=== PATIENT | male | born 1990 ===

== ENCOUNTER 2020-05-14 03:31 | Emergency (ER) | payer SELFPAY ==
[2020-05-14] MEDS ORDERED: IBUPROFEN 400 MG TAB ONE (04:06)
[2020-05-14] MEDS ORDERED: ACETAMINOPHEN 500 MG TAB ONE (04:06)
--- NOTE | 2020-05-14 05:03 | ER ---
Nurse's Notes [facility] Name: Luis Live Age: 30 yrs Sex: Male : 1990 Arrival Date: 05/14/2020 Time: 03:31 Bed 24 Private MD: Diagnosis: Laceration without foreign body of scalp;Contusion of unspecified part of head;Concussion without loss of consciousness Presentation: 05/14 03:40 Chief complaint: EMS states: PD reported pt stitches came out, pt reports he feels ea "off" states " I did drink tonight". Coronavirus screen: At this time, the client does not indicate any symptoms associated with coronavirus-19. Ebola Screen: No symptoms or risks identified at this time. Complicating Factors: There are no complicating factors for this patient. Initial Sepsis Screen: Does the patient meet any 2 criteria? No. Patient's initial sepsis screen is negative. Does the patient have a suspected source of infection? No. Patient's initial sepsis screen is negative. Risk Assessment: Do you want to hurt yourself or someone else? Patient reports no desire to harm self or others. Onset of symptoms was May 14, 2020. 03:40 Method Of Arrival: EMS: [facility] ea 03:40 Acuity: CARLOS 3 ea Triage Assessment: 03:49 General: Appears in no apparent distress. Behavior is appropriate for age, Smells of ea alcohol. Pain: Denies pain. Respiratory: Airway is patent Respiratory effort is even, unlabored, Respiratory pattern is regular, symmetrical. Derm: Skin is pink, warm \\T\\ dry. Injury Description: Laceration sustained to right side of head was sustained reports laceration is 1 week old. Historical: - Allergies: 03:48 No Known Allergies; ea - Home Meds: 03:48 None [Active]; ea - PMHx: 03:48 None; ea - PSHx: 03:48 None; ea - Immunization history:: Adult Immunizations up to date. - Social history:: Smoking status: Patient denies any tobacco usage or history of. Screenin:48 Abuse screen: Denies threats or abuse. Nutritional screening: No deficits noted. ea Tuberculosis screening: No symptoms or risk factors identified. Fall Risk Assessment: 03:54 Reassessment: Patient appears in no apparent distress at this time. Patient is alert, sg oriented x 3, equal unlabored respirations, skin warm/dry/pink. pt refused pain medications as ordered at this time, pt states " Im good, I just need the sutures put back in and Im good." pain education provided to patient, stated understanding, ERP notified pt refused medications ordered at this time. Vital Signs: 03:40 BP 147 / 104; Pulse 95; Resp 17; Temp 98.3; Pulse Ox 100% ; Weight 104.33 kg; Height 5 ea ft. 10 in. (177.80 cm); 03:40 Body Mass Index 33.00 (104.33 kg, 177.80 cm) ea Zhou Coma Score: 06:23 Eye Response: spontaneous(4). Verbal Response: oriented(5). Motor Response: obeys tw4 commands(6). Total: 15. 06:23 Eye Response: spontaneous(4). Verbal Response: oriented(5). Motor Response: obeys tw4 commands(6). Total: 15. ED Course: 03:31 Patient arrived in ED. sg 03:36 Andreas Ocampo, RN is Primary Nurse. sg 03:[address] MD is Attending Physician. tw4 03:47 Triage completed. sg 03:47 Arm band placed on. sg 03:48 Patient has correct armband on for positive identification. Bed in low position. Call ea light in reach. Side rails up X2. 04:24 CT Head Brain wo Cont In Process Unspecified. EDMS 05:14 No provider procedures requiring assistance completed. Patient did not have IV access ea during this emergency room visit. Administered Medications: 03:52 Not Given (Patient Refused): Motrin 800 mg PO once sg 03:52 Not Given (Patient Refused): Tylenol 1000 mg PO once sg Outcome: 05:02 Discharge ordered by . tw4 05:14 Patient left the ED. rr5 Signatures: Dispatcher [employer] EDMS Andreas Ocampo RN RN Marjorie Jay RN RN ea Wadley, Terrence, MD MD [facility] Erik Morales RN RN rr5 Corrections: (The following items were deleted from the chart) 03:48 03:47 Acuity: CARLOS 4 sg
--- NOTE | 2020-05-14 05:03 | EDPHYS ---
Physician Documentation [facility] Name: Luis Live Age: 30 yrs Sex: Male : 1990 Arrival Date: 05/14/2020 Time: 03:31 Bed 24 Private MD: ED Physician Eugene Lane HPI: 05/14 06:23 This 30 yrs old Male presents to ER via EMS with complaints of Laceration. tw4 06:23 The patient or guardian reports injury. The complaints affect the right temporal area. tw4 Context of injury: The problem [facility]. Onset: The symptoms/episode began/occurred just prior to arrival, today. Associated signs and symptoms: Loss of consciousness: This patient experience a loss of consciousness. The patient has not experienced similar symptoms in the past. Historical: - Allergies: 03:48 No Known Allergies; ea - Home Meds: 03:48 None [Active]; ea - PMHx: 03:48 None; ea - PSHx: 03:48 None; ea - Immunization history:: Adult Immunizations up to date. - Social history:: Smoking status: Patient denies any tobacco usage or history of. ROS: 06:23 Constitutional: Negative for fever, chills, and weight loss, Cardiovascular: Negative tw4 for chest pain, palpitations, and edema, Respiratory: Negative for shortness of breath, cough, wheezing, and pleuritic chest pain, Abdomen/GI: Negative for abdominal pain, nausea, vomiting, diarrhea, and constipation, Back: Negative for injury and pain, MS/Extremity: Negative for injury and deformity. Exam: 06:23 Constitutional: This is a well developed, well nourished patient who is awake, alert, tw4 and in no acute distress. 06:23 Neck: Trachea midline, no thyromegaly or masses palpated, and no cervical lymphadenopathy. Supple, full range of motion without nuchal rigidity, or vertebral point tenderness. No Meningismus. Chest/axilla: Normal chest wall appearance and motion. Nontender with no deformity. No lesions are appreciated. Cardiovascular: Regular rate and rhythm with a normal S1 and S2. No gallops, murmurs, or rubs. Normal PMI, no JVD. No pulse deficits. 06:23 Head/face: Noted is contusion, that is superficial, of the right temporal area, a laceration(s), that is linear, 5 cm(s). Vital Signs: 03:40 BP 147 / 104; Pulse 95; Resp 17; Temp 98.3; Pulse Ox 100% ; Weight 104.33 kg; Height 5 ea ft. 10 in. (177.80 cm); 03:40 Body Mass Index 33.00 (104.33 kg, 177.80 cm) ea Zhou Coma Score: 06:23 Eye Response: spontaneous(4). Verbal Response: oriented(5). Motor Response: obeys tw4 commands(6). Total: 15. 06:23 Eye Response: spontaneous(4). Verbal Response: oriented(5). Motor Response: obeys tw4 commands(6). Total: 15. Laceration: 03:43 Wound Repair of 5.1cm ( 2in ) subcutaneous laceration to right temporal area. Distal tw4 neuro/vascular/tendon intact. Wound prep: Moderate cleansing by me. Skin closed with 2 1-0 Mark using simple sutures and sterile technique. Dressed with Bacitracin. Patient tolerated well. MDM: 03:43 Patient medically screened. tw4 06:23 Differential diagnosis: Contusion of Hematoma on Laceration of. Data reviewed: vital tw4 signs, nurses notes. Data interpreted: Pulse oximetry: Interpretation:. Counseling: I had a detailed discussion with the patient and/or guardian regarding: the historical points, exam findings, and any diagnostic results supporting the discharge/admit diagnosis. Special discussion: Based on the patient's history, exam and DX evaluation, there is no indication for emergent intervention or inpatient TX. It is understood by the patient/guardian that if the SXs persist or worsen they need to return immediately for re-evaluation. I discussed with the patient/guardian in detail that at this point there is no indication for admission to the hospital. It is understood, however, that if the symptoms persist or worsen the patient needs to return immediately for re-evaluation. 05/14 03:45 Order name: CT Head Brain wo Cont tw4 Administered Medications: 03:52 Not Given (Patient Refused): Motrin 800 mg PO once sg 03:52 Not Given (Patient Refused): Tylenol 1000 mg PO once sg Disposition: 05/14/20 05:02 Discharged to Home. Impression: Laceration without foreign body of scalp, Contusion of unspecified part of head, Concussion without loss of consciousness. - Condition is Stable. - Discharge Instructions: Contusion, Post-Concussion Syndrome, Head Injury, Adult, [id number]. - Prescriptions for Ibuprofen 800 mg Oral Tablet - take 1 tablet by ORAL route every 8 hours As needed take with food; 30 tablet. - Medication Reconciliation Form, Thank You Letter, Antibiotic Education, Prescription Opioid Use form. - Follow up: Private Physician; When: Upon discharge from the Emergency Department; Reason: Recheck today's complaints, Continuance of care, Re-evaluation by your physician. - Problem is new. - Symptoms have improved. Signatures: Dispatcher [employer] EDMS Marjorie Jay RN RN Eugene Olivas MD MD tw4 Erik Morales RN RN rr5 Andreas Ocampo RN sg Corrections: (The following items were deleted from the chart) 05:14 05:02 05/14/2020 05:02 Discharged to Home. Impression: Laceration without foreign body rr5 of scalp; Contusion of unspecified part of head; Concussion without loss of consciousness. Condition is Stable. Forms are Medication Reconciliation Form, Thank You Letter, Antibiotic Education, Prescription Opioid Use. Follow up: Private Physician; When: Upon discharge from the Emergency Department; Reason: Recheck today's complaints, Continuance of care, Re-evaluation by your physician. Problem is new. Symptoms have improved. tw4
[2020-05-14 05:52] VITALS: BP 147/104; TEMP 98.3; O2SAT 100
--- NOTE | 2020-05-14 12:43 | RAD REPORT ---
EXAM DESCRIPTION: CT - Head Brain Wo Cont - 05/14/2020 6:13 am CLINICAL HISTORY: TRAUMA COMPARISON: None. TECHNIQUE: CT HEAD WITHOUT IV CONTRAST on 05/14/2020 3:45 AM CDT This exam was performed according to our departmental dose-optimization program, which includes autom ated exposure control, adjustment of the mA and/or kV according to patient size and/or use of iterati ve reconstruction technique. FINDINGS: There is no acute hemorrhage, mass effect or midline shift. Ray-white differentiation is preserved. There is no hydrocephalus. There is no significant volume loss for age. The calvarium is intact. Orbits and globes are unremarkable. Left maxillary sinus is opacified. Masto id air cells are clear. IMPRESSION: No acute intracranial findings. Electronically signed by: Buzz Ren MD 05/14/2020 4:52 AM CDT Due to temporary technical issues with the PACS/Fluency reporting system, reports are being signed by the in house radiologist without review as a courtesy to ensure prompt reporting. The interpreting r adiologist is fully responsible for the content of the report.
== END 2020-05-14 05:14 | disposition home or self-care (01) ==
LOC: ER 03:31
PROC: 0JQ00ZZ Repair Scalp Subcutaneous Tissue and Fascia, Open Approach (ICD-10-PCS; principal; 2020-05-14)
DX: S01.01XA Laceration without foreign body of scalp, initial encounter (principal); S06.0X0A Concussion without loss of consciousness, initial encounter; W45.8XXA Other foreign body or object entering through skin, initial encounter; Y93.9 Activity, unspecified; Y92.149 Unspecified place in prison as the place of occurrence of the external cause
CPT/HCPCS: 70450; 99283